=== PATIENT | male | born 1960 | race Caucasian/White ===

== ENCOUNTER 2019-11-24 14:39 | Emergency (ER) | payer OTHER ==
[~2019-11-24] VITALS: Ht 180.3 cm; Wt 117.9 kg
[2019-11-24 14:52] VITALS: BP 146/95
--- NOTE | 2019-11-24 14:52 | NUR ---
PT TAKEN TO ER BED 03
--- NOTE | 2019-11-24 15:17 | NUR ---
C/O N/V/D , GENERALIZED WEAKNESS, DIZZINESS X 1 WEEK.PT AWAKE, ALERT, AFIBRILE , AMBULATORY WITH STEADY GAIT. WET MUCUOUS MEMBRANE, SOFT FLABBY ABDOMEN , HAD 4 EPISODES OF LOOSE WATERY STOOL NON FOUL SMELLING, DENIES ABDOMINAL PAIN. MED HX: DM MEDS INSULIN
--- NOTE | 2019-11-24 16:04 | NUR ---
PATIENT RESTING IN BED.
[2019-11-24] MEDS ORDERED: metroNIDAZOLE 500 MG/NS PREMIX 100 ML IV ONE (16:15)
[2019-11-24] MEDS ORDERED: NACL 0.9% 1,000 ML IV ONE (16:15)
[2019-11-24] MEDS ORDERED: LEVOFLOXACIN 500 MG/D5W PREMIX 100 ML IV ONE ×2 (16:15→18:05)
[2019-11-24 16:50] LABS: BASOPHILS % (AUTO) 0.6 % (0.0-2.0); EOSINOPHILS # (AUTO) 0.1 K/uL (0-0.4); EOSINOPHILS % (AUTO) 1.2 % (0.0-4.0); HEMATOCRIT 45.8 % (36-52); HEMOGLOBIN 15.4 g/dL (12.0-18.0); LYMPHOCYTES # (AUTO) 1.8 K/uL (2.0-11.5); LYMPHOCYTES % (AUTO) 21.2 % (20.5-51.1); MEAN CORPUSCULAR HEMOGLOBIN 28 pg (27-31); MEAN CORPUSCULAR HGB CONC 34 g/dL (33-37); MEAN CORPUSCULAR VOLUME 81.9 fL (80-94); MONOCYTES # (AUTO) 0.6 K/uL (0.8-1.0); MONOCYTES % (AUTO) 6.7 % (1.7-9.3); NEUTROPHILS # (AUTO) 5.9 K/uL (1.8-7.7); NEUTROPHILS % (AUTO) 70.3 % (42.2-75.2); PLATELET COUNT (AUTO) 202 K/uL (140-450); RED BLOOD CELL COUNT(AUTO) 5.59 MIL/uL (4.20-6.10); RED CELL DISTRIBUTION WIDTH 14.6 % (11.6-13.7); WHITE BLOOD COUNT (AUTO) 8.4 K/uL (4.8-10.8)
[2019-11-24 17:05] LABS: ANION GAP 14.1 (8-16); CARBON DIOXIDE 22.4 mmol/L (21-32); CREATININE 1.7 mg/dL (0.6-1.3); POTASSIUM 4.5 mmol/L (3.5-5.1); TOTAL BILIRUBIN 0.4 mg/dL (0.0-1.0)
--- NOTE | 2019-11-24 17:21 | NUR ---
PT C/O OF HEADACHE 5/1O ,BP AT 102 / 60 OXYGEN SAT AT 99 PERCENT.
[2019-11-24] MEDS ORDERED: KETOROLAC 30 MG/ML VIAL IVP ONE (17:25)
--- NOTE | 2019-11-24 18:00 | NUR ---
pt went ctscan via wheel chair.
--- NOTE | 2019-11-24 18:12 | NUR ---
PT RETURNED FROM CT AT THIS TIME
--- NOTE | 2019-11-24 19:02 | NUR ---
GAVE REPORT TO YUMIKO YU.
--- NOTE | 2019-11-24 19:41 | NUR ---
PT DENIES PAIN AT THIS TIME. PT REQUESTING A CHEESEBURGER
--- NOTE | 2019-11-24 20:00 | NUR ---
DX GASTRITIS. ACI WITH RX GIVEN TO PT. PT TO FOLLOW UP WITH PMD. NO CHEESEBURGERS FOR A WHILE.
[2019-11-24 20:01] VITALS: BP 120/90
--- NOTE | 2019-11-26 10:26 | NUR ---
Late entry. Confirmed with RN that 0.9NS IV completed at 1900 and Flagyl completed at 1740 Addendum: 11/26/19 at 1028 by [email or web address] Levoquin not flagyl
== END 2019-11-24 20:00 | disposition home or self-care (01) ==
LOC: MED 14:39
DX: A09 Infectious gastroenteritis and colitis, unspecified (principal); R11.10 Vomiting, unspecified; E11.9 Type 2 diabetes mellitus without complications; I10 Essential (primary) hypertension; Z89.422 Acquired absence of other left toe(s)
CPT/HCPCS: 36415; 74176; 80053; 85025; 87040; 96365; 96367; 96375; 99284; J1885; J1956; J3490; J7030

== ENCOUNTER 2019-12-27 18:54 | Emergency (ER) | payer OTHER ==
[~2019-12-27] VITALS: Ht 165.1 cm; Wt 108.9 kg
[2019-12-27 18:55] VITALS: BP 170/95
--- NOTE | 2019-12-27 18:55 | NUR ---
PT PLACED IN BED 7 BY EMS.
--- NOTE | 2019-12-27 18:59 | NUR ---
L AC 20G INSERTED BY EMS. IV SITE FLUSHED AND IS PATENT.
--- NOTE | 2019-12-27 18:59 | NUR ---
XRAY AT BEDSIDE.
--- NOTE | 2019-12-27 18:59 | NUR ---
TRIAGE COMPLETED BY JOSE L OWEN RN
--- NOTE | 2019-12-27 19:00 | NUR ---
59M BIBA ALS W C/O R KNEE PAIN S/P MECHANICAL FALL. PT STATES HE CANNOT BEND R KNEE.. CMS INTACT, NO SWELLING/REDNESS NOTED TO R KNEE. 100 MCG FENTANYL GIVEN ON SCENE/IN ROUTE. PAIN 8/10 AT THIS TIME. 20 G LAC IV STARTED IN THE FIELD. HX: DM, HTN RX: INSULIN
--- NOTE | 2019-12-27 19:13 | NUR ---
Pt report RECEIVED FROM YUMIKO ISABEL. ASSUMED CARE OF PT AT THIS TIME.
--- NOTE | 2019-12-27 19:15 | NUR ---
PT RESTING IN POSITION OF COMFORT. BED LOW AND LOCKED, 2 SIDERAILS UP, PT CONNECTED TO MONITOR. VSS. WILL CONTINUE TO MONITOR.
--- NOTE | 2019-12-27 19:50 | NUR ---
DR. ANNE GAVE VERBAL UPDATE OF WANTING TO KEEP PT NPO AND STATED WILL ORDER PAIN MEDICATION.
[2019-12-27] MEDS ORDERED: HYDROcodone/APAP 5/325 MG 1 TAB TAB PO ONE ×2 (20:00→20:50)
--- NOTE | 2019-12-27 20:35 | NUR ---
INFORMED PT'S BP IS 189/114 AND THAT PT TAKES HIS BP MEDICATION AT NIGHT AND HAS YET TO TAKE IT THIS EVENING AND THAT PT BROUGHT BP MED WITH HIM TO HOSPITAL. PER DR. ANNE HAVE PT TAKE HIS HOME BP MEDICATION (METOPROLOL ER SUCCINATE 100MG X 1 TAB ), SO GAVE PT ONE TAB AT 2038.
--- NOTE | 2019-12-27 20:48 | NUR ---
VERBAL ORDER FROM TO ORDER ANOTHER SHERIDAN 5 /+ SPLINT/+CRUTCHES. NOTED AND CARRIED OUT.
--- NOTE | 2019-12-27 20:50 | NUR ---
EMT AT BEDSIDE APPLYING SPLINT AND DOING CRUTCH TEACHING
--- NOTE | 2019-12-27 21:03 | NUR ---
PT RIGHT KNEE WAS PLACED IN A KNEE IMOBOLIZER AND GIVEN CRUTCHES. PTS PMSC WNL AND SHOWED GOOD USE OF CRUTCHES.
--- NOTE | 2019-12-27 21:18 | NUR ---
PT RECEIVED CRUTCH TRAINING FROM EMT. +CMS. PT RESTING IN BED IN POSITION OF COMFORT . BP 140/102. WILL CONTINUE TO MONITOR.
--- NOTE | 2019-12-27 21:27 | NUR ---
INFORMED PT AMBULATED WITH CRUTCHES AND AJ COSTA STATED WILL D/C PT SOON.
[2019-12-27 22:05] VITALS: BP 140/102
--- NOTE | 2019-12-27 22:05 | NUR ---
Patient discharged with v/s stable. Written and verbal after care instructions given and explained. Patient alert, oriented and verbalized understanding of instructions. Wheel Chair Assisted with to car. All questions addressed prior to discharge. ID band removed. Patient advised to follow up with PMD. Rx of NORCO given. Patient educated on indication of medication including possible reaction and side effects. Opportunity to ask questions provided and answered. PT PROVIDED CD AND IT WAS VERIFIED BY 2 RN'S. PT WENT HOME WITH CRUTCHES.
== END 2019-12-27 22:05 | disposition home or self-care (01) ==
LOC: MED 18:54
DX: M25.561 Pain in right knee (principal); E11.9 Type 2 diabetes mellitus without complications; I10 Essential (primary) hypertension; Z98.890 Other specified postprocedural states; X58.XXXA Exposure to other specified factors, initial encounter; Y93.01 Activity, walking, marching and hiking; Y92.89 Other specified places as the place of occurrence of the external cause; Y99.8 Other external cause status
CPT/HCPCS: 29505; 73562; 99283; Q0092